=== PATIENT | male | born 1965 | race Caucasian/White ===

== ENCOUNTER 2022-08-28 05:50 | Day surgery (SDC) | payer BC ==
[~2022-08-28] VITALS: Ht 157.5 cm; Wt 61.7 kg
[2022-08-28] MEDS ORDERED: ceFAZolin SODIUM 2 GM in D5W 100 ML IV ONE (07:00)
[2022-08-28] MEDS ORDERED: ACETAMINOPHEN I.V. 1000 MG 100 ML IV ONE (07:21)
[2022-08-28] MEDS ORDERED: MIDAZOLAM HCL 2 MG/2 ML VIAL (VERSED) ONE (10:23)
[2022-08-28] MEDS ORDERED: ROCURONIUM BROMIDE 10 MG/ML (ZEMURON) ONE (10:23)
[2022-08-28] MEDS ORDERED: DEXAMETHASONE SOD PHOSPHATE 4 MG/ML VIAL ONE (10:23)
[2022-08-28] MEDS ORDERED: DESFLURANE 15 MIN GAS INH ONE (10:23)
[2022-08-28] MEDS ORDERED: LR 1,000 ML IV.SOLN IV ONE (10:23)
[2022-08-28] MEDS ORDERED: fentaNYL CITRATE/PF 100 MCG/2 ML AMP ONE (10:23)
[2022-08-28] MEDS ORDERED: ONDANSETRON HCL 4 MG/2 ML VIAL ONE (10:23)
[2022-08-28] MEDS ORDERED: LIDOCAINE 2%, 20 ML MDV ONE (10:23)
[2022-08-28] MEDS ORDERED: NORMAL SALINE 10 ML VIAL ONE (10:23)
[2022-08-28] MEDS ORDERED: KETOROLAC TROMETHAMINE 30 MG VIAL ONE (10:23)
[2022-08-28] MEDS ORDERED: PROPOFOL 200MG/ 20ML VIAL (DIPRIVAN) IV ONE (10:23)
[2022-08-28] MEDS ORDERED: SUGAMMADEX SODIUM 200 MG/2 ML VIAL IV ONE (10:23)
[2022-08-28] MEDS ORDERED: BUPIVACAINE /EPINEPHRINE/PF 0.5% 30 ML VIAL INJ ONE (10:23)
[2022-08-28] MEDS ORDERED: NS IRRIG SOLN 1000 ML IR ONE (10:23)
[2022-08-28] MEDS ORDERED: MEPERIDINE HCL/PF 25 MG/ML DISP.SYRIN IVP PRN (11:15)
[2022-08-28] MEDS ORDERED: METOCLOPRAMIDE HCL 10 MG/2 ML VIAL IVP PRN (11:15)
[2022-08-28] MEDS ORDERED: LR 1,000 ML IV SCH (11:15)
[2022-08-28] MEDS ORDERED: HYDROmorphone 1 MG/ML INJ. CARTRIDGE IVP PRN ×2 (11:15)
[2022-08-28 14:34] VITALS: BP_SYST 130
== END 2022-08-28 16:00 | disposition home or self-care (01) ==
LOC: SDS 05:50 → SMU 05:50 → SDS 16:00
PROVIDERS: ATTEND Surgery
DX: K40.91 Unilateral inguinal hernia, without obstruction or gangrene, recurrent (principal); K42.9 Umbilical hernia without obstruction or gangrene
CPT/HCPCS: 87081; 49651; 49591; 88302; C1781; J3490 ×2; J1100; J1885; J2001; J3465; J2405; J2704; J3010; J7060; J7120; C1727; J0131; S2900